=== PATIENT | female | born 1955 | race Caucasian/White ===

== ENCOUNTER → 2017-02-24 | Outpatient (CLI) | payer OTHER ==
[~2017-02-24] MED LIST: ADULT FOLDING1 EACH MC; ADVAIR 250/501 DISK IH; COUMADIN2.5 MG PO; HYDROCODON-ACE1 EAC8 PO; INVOKANA100 MG PO; IRON325 M1 PO; MELOXICAM7.5 MG PO; PERCOCET 5/31 TABLET PO; PRILOSEC20 MG PO; SIMVASTATIN20 MG PO; TOPROL XL50 MG PO; VISTARIL25 MG PO; ZESTORETIC 20-1 EAC1 PO
== END | disposition home or self-care (01) ==
DX: M16.11 Unilateral primary osteoarthritis, right hip (principal); R26.2 Difficulty in walking, not elsewhere classified; M25.551 Pain in right hip; M25.651 Stiffness of right hip, not elsewhere classified; M62.81 Muscle weakness (generalized); Z74.1 Need for assistance with personal care
CPT/HCPCS: 97110 GP; 97150 GO; 97161 GP; 97165 GO; G8978 GP; G8979 GP; G8980 GP; G8987 GO; G8988 GO; G8989 GO

== ENCOUNTER → 2017-03-31 | Day surgery (SDC) | payer OTHER ==
[~2017-03-31] VITALS: Ht 161.3 cm; Wt 107.5 kg
[~2017-03-31] MED LIST changes: +ALLEGRA60 MG PO; +JANUVIA100 MG PO; +NORCO 7.5/321 TABLET PO; +ULTRAM50 MG PO; +ZITHROMAX500 MG PO
[2017-03-31 07:10] LABS: POINT-OF-CARE METER ID UU14174212
[2017-03-31 07:34] VITALS: BP 133/66
== END | disposition home or self-care (01) ==
LOC: CANRESERV 03-30 21:21 → ENRESERV 03-30 21:21 → 2SOUTH 06:02 → SDC 06:02 → 2SOUTH 11:37 → EDSTATUS 11:40 → 2SOUTH 12:37
PROVIDERS: Orthopaedic Surgery
PROC: 0SJ9XZZ Inspection of Right Hip Joint, External Approach (ICD-10-PCS; principal; 2017-03-31)
DX: M16.11 Unilateral primary osteoarthritis, right hip (principal); Z53.09 Procedure and treatment not carried out because of other contraindication; I10 Essential (primary) hypertension; E11.9 Type 2 diabetes mellitus without complications; E78.00 Pure hypercholesterolemia, unspecified; R41.0 Disorientation, unspecified
CPT/HCPCS: 82948; J0131; J0690; J2250; J7050; Q0175

== ENCOUNTER 2017-06-01 22:06 | Inpatient (IN) | payer OTHER ==
[~2017-06-01] VITALS: Ht 160 cm; Wt 106.9 kg
[~2017-06-01 22:06] MED LIST changes: +VENTOLIN HFA18 GM IH
[2017-06-02 10:25] VITALS: BP 118/59
[2017-06-02 11:25] LABS: POINT-OF-CARE METER ID UU14174212
[2017-06-02 15:42] LABS: HEMATOCRIT 39.3 % (36.0-46.0); MCV 92.7 FL (83-99)
[2017-06-02 15:53] LABS: POINT-OF-CARE METER ID UU13113675; POINT-OF-CARE USER ID 515036437
[2017-06-02 16:40] VITALS: BP 112/55
[2017-06-02 17:00] LABS: POINT-OF-CARE METER ID UU13113712
[2017-06-02 18:40] VITALS: BP 120/56
[2017-06-02 20:25] VITALS: BP 102/50
[2017-06-02 21:42] LABS: POINT-OF-CARE METER ID UU13113712
[2017-06-02 23:00] VITALS: BP 93/51
[2017-06-03 04:00] VITALS: BP 99/50
[2017-06-03 07:41] LABS: POINT-OF-CARE METER ID UU13113712
[2017-06-03 08:00] VITALS: BP 105/51
[2017-06-03 11:42] LABS: POINT-OF-CARE METER ID UU13113712
[2017-06-03 12:14] VITALS: BP 114/53
[2017-06-03 15:09] LABS: HEMATOCRIT 31.5 % (36.0-46.0); MCV 90.8 FL (83-99)
[2017-06-03 15:42] VITALS: BP 112/56
[2017-06-03 16:27] LABS: POINT-OF-CARE METER ID UU13113712
[2017-06-03 20:05] VITALS: BP 115/57
[2017-06-03 22:47] LABS: POINT-OF-CARE METER ID UU13113712
[2017-06-04 00:32] VITALS: BP 122/52
[2017-06-04 04:00] VITALS: BP 103/54
[2017-06-04 07:49] LABS: POINT-OF-CARE METER ID UU13113712
[2017-06-04 08:08] VITALS: BP 135/62
[2017-06-04] MEDS ORDERED: ELIQUIS2.5 MG PO (12:09)
[2017-06-04] MEDS ORDERED: NORCO 5/3251 TABLET PO (12:13)
[2017-06-04 12:28] VITALS: BP 133/61
[2017-06-04 12:36] LABS: POINT-OF-CARE METER ID UU13113712
== END 2017-06-04 14:04 | disposition home health service (06) | DRG 470 ==
LOC: ENRESERV 22:06 → 2SOUTH 06-02 09:00 → 3WEST 06-02 09:00 → 2SOUTH 06-02 11:59 → 3WEST 06-02 16:16
PROVIDERS: Orthopaedic Surgery
PROC: 0SR902A Replacement of Right Hip Joint with Metal on Polyethylene Synthetic Substitute, Uncemented, Open Approach (ICD-10-PCS; principal; 2017-06-02)
DX: M16.11 Unilateral primary osteoarthritis, right hip (principal); J45.909 Unspecified asthma, uncomplicated; I10 Essential (primary) hypertension; E11.9 Type 2 diabetes mellitus without complications; K21.9 Gastro-esophageal reflux disease without esophagitis; E78.00 Pure hypercholesterolemia, unspecified; Z96.651 Presence of right artificial knee joint
CPT/HCPCS: 82948; 85014; 85018; 94640; 94640 76; 97530 GP; 99202; J0131; J0690; J1100; J1170; J1815; J2250; J7050; J7120